=== PATIENT | female | born 1975 | race Caucasian/White ===

== ENCOUNTER 2024-02-29 09:00 | Emergency (ER) | payer OTHER ==
[2024-02-29] MEDS: Acetaminophen/HYDROcodone 325-7.5 MG Tab PO STA (10:21)
== END 2024-02-29 14:15 | disposition home or self-care (01) ==
LOC: JP.ED 09:00
DX: S20.212A Contusion of left front wall of thorax, initial encounter (principal); I10 Essential (primary) hypertension; F17.210 Nicotine dependence, cigarettes, uncomplicated; Z79.899 Other long term (current) drug therapy; X58.XXXA Exposure to other specified factors, initial encounter
CPT/HCPCS: 71101; 99284; A9270